=== PATIENT | female | born 1970 | race Caucasian/White ===

== ENCOUNTER 2020-11-22 14:40 | Outpatient (REF) | payer MEDICAID, SELFPAY ==
--- NOTE | ~2020-11-22 | MM_ITS ---
EXAMINATION: MM SCREENING DIGITAL BREAST TOMOSYNTHESIS, BILATERAL CLINICAL INFORMATION: Screening. Asymptomatic. Previous right breast lumpectomy for papillary hyperplasia The lifetime risk of breast cancer based on the Tyrer-Cuzick Model is 17.7%. COMPARISON: Mammography: March 08, 2019 and studies dating back to October 29, 2011 TECHNIQUE: Digital breast tomosynthesis is performed in both the craniocaudal and mediolateral oblique views along with computer-aided detection (CAD). Synthesized 2D images are generated from the tomosynthesis. FINDINGS: There are scattered areas of fibroglandular density (ACR BI-RADS breast composition Category b). There are no significant masses, abnormal calcifications, or other abnormalities. Stable right retroareolar circumscribed density again seen. MM/MM tomosynthesis screening BI IMPRESSION: There are no significant changes from prior study. ASSESSMENT: BI-RADS 1: Negative RECOMMENDATION: Routine annual mammography screening. This patient's information was entered into a reminder system with a target due date for their next mammogram.
== END 2020-11-22 14:41 | disposition home or self-care (01) ==
LOC: HO.MAMMO 14:40
PROVIDERS: PCP Internal Medicine; Visit Provider Internal Medicine
DX: Z12.31 Encounter for screening mammogram for malignant neoplasm of breast (principal)
CPT/HCPCS: 77063; 77067

== ENCOUNTER 2021-05-22 14:07 | Outpatient (REF) | payer MEDICAID, SELFPAY ==
--- NOTE | ~2021-05-22 | XR_ITS ---
EXAMINATION: BILATERAL KNEE. CLINICAL INFORMATION: Pain in bilateral knee. COMPARISON: None TECHNIQUE: 4 views each knee. FINDINGS: RIGHT KNEE: There is loss of medial and patellofemoral compartment joint space with periarticular spurring. No abnormal joint effusion, loose bodies or bony erosive changes. LEFT KNEE: There is mild loss of medial and patellofemoral compartment joint space with periarticular spurring. No joint effusion, loose bodies or bony erosive changes seen. XR/XR knee RT 4V IMPRESSION: Degenerative arthritic changes medial and patellofemoral compartment both knees without joint effusion. No acute fracture or dislocation seen.
--- NOTE | ~2021-05-22 | XR_ITS ---
EXAMINATION: BILATERAL KNEE. CLINICAL INFORMATION: Pain in bilateral knee. COMPARISON: None TECHNIQUE: 4 views each knee. FINDINGS: RIGHT KNEE: There is loss of medial and patellofemoral compartment joint space with periarticular spurring. No abnormal joint effusion, loose bodies or bony erosive changes. LEFT KNEE: There is mild loss of medial and patellofemoral compartment joint space with periarticular spurring. No joint effusion, loose bodies or bony erosive changes seen. XR/XR knee LT 4V IMPRESSION: Degenerative arthritic changes medial and patellofemoral compartment both knees without joint effusion. No acute fracture or dislocation seen.
== END 2021-05-22 14:08 | disposition home or self-care (01) ==
LOC: HO.XRAY 14:07
PROVIDERS: PCP Internal Medicine; Visit Provider Internal Medicine
DX: M25.561 Pain in right knee (principal); M25.562 Pain in left knee
CPT/HCPCS: 73564

== ENCOUNTER 2021-07-18 16:00 | Outpatient (RCR) | payer MEDICAID, SELFPAY | END 2021-07-24 15:36 | disposition home or self-care (01) | LOC: HO.PT 16:00 | PROVIDERS: PCP Internal Medicine; Visit Provider Internal Medicine | DX: M25.561 Pain in right knee (principal) | CPT/HCPCS: 97110; 97161; 97530 ==

== ENCOUNTER 2021-11-23 15:19 | Outpatient (REF) | payer MEDICAID, SELFPAY ==
--- NOTE | ~2021-11-23 | MM_ITS ---
EXAMINATION: MM SCREENING DIGITAL BREAST TOMOSYNTHESIS, BILATERAL CLINICAL INFORMATION: Screening. Asymptomatic. The lifetime risk of breast cancer based on the Tyrer-Cuzick Model is 13%. COMPARISON: Mammography: 11/22/2020 and prior studies dating back to 11/25/2013. TECHNIQUE: Digital breast tomosynthesis is performed in both the craniocaudal and mediolateral oblique views along with computer-aided detection (CAD). Synthesized 2D images are generated from the tomosynthesis. Additional right CC view is provided. FINDINGS: There are scattered areas of fibroglandular density (ACR BI-RADS breast composition Category b). Parenchymal pattern is similar to prior study. The left breast shows no interval mass or architectural abnormality or developing density. No abnormal calcifications on left. The bilateral axilla and skin contours are unremarkable. Right breast has smooth retroareolar nodule, slightly increased in size from prior remote studies. In addition, there are additional tightly grouped calcifications mid outer right breast on CC view but without definite correlate on MLO projection. Patient will be recalled for additional imaging of the 2 findings on the right. MM/MM tomosynthesis screening BI IMPRESSION: Right: -Smooth retroareolar nodule sightly increased. -Tightly grouped calcifications mid outer quadrant questionably increased. Left: -No mammographic evidence of malignancy. ASSESSMENT: BI-RADS 0: Incomplete - Need Additional Imaging Evaluation RECOMMENDATION: 1. Additional views of the right breast for calcifications (magnification CC; magnification ML). 2. Targeted ultrasound retroareolar right breast for nodule. 3. Radiology department staff will contact the patient for additional imaging. This patient's information was entered into a reminder system with a target due date for their next mammogram.
== END 2021-11-23 15:20 | disposition home or self-care (01) ==
LOC: HO.MAMMO 15:19
PROVIDERS: PCP Internal Medicine; Visit Provider Internal Medicine
DX: Z12.31 Encounter for screening mammogram for malignant neoplasm of breast (principal)
CPT/HCPCS: 77063; 77067

== ENCOUNTER 2021-12-10 14:02 | Outpatient (REF) | payer MEDICAID, SELFPAY ==
--- NOTE | ~2021-12-10 | MM_ITS ---
EXAMINATION: MM DIAGNOSTIC DIGITAL MAMMOGRAPHY, RIGHT US DIAGNOSTIC ULTRASOUND BREAST, RIGHT CLINICAL INFORMATION: Recall from screening for 2 findings, calcifications mid outer right breast and retroareolar nodule right breast. COMPARISON: Mammography: 11/23/2021, 11/22/2020, 03/08/2019, 02/06/2018, 01/20/2017, 01/10/2017, 12/22/2015, 12/08/2014. TECHNIQUE: Digital mammography right breast is performed in the following views: Magnification CC, magnification ML x2. Ultrasound right breast is targeted to the retroareolar region. Grayscale imaging and color Doppler are performed without and with harmonics. FINDINGS: There are scattered areas of fibroglandular density (ACR BI-RADS breast composition Category b). The magnification views demonstrate 2 separate but similar appearing grouped round calcifications which vary in size in the central outer right breast. Calcifications represent change from prior exams. Suggest stereotactic sampling of one of the grouped calcifications. If benign, then other group could be followed with diagnostic mammography in 6 months. Ultrasound right breast demonstrates a circumscribed solid nodule retroareolar 9:00 position measuring 10 x 8 x 5 mm. Nodule is increased in size since 2014. There is internal or peripheral color flow. No associated duct ectasia. This could represent an intraductal papilloma or slow-growing fibroadenoma. Ultrasound-guided core biopsy is suggested. Preliminary results are discussed with the patient at time of visit, using an criminology professor. MM/MM added views RT IMPRESSION: -2 similar appearing grouped calcifications central outer right breast representing change from prior exams. -1 cm retroareolar nodule increased in size since 2014, possibly intraductal papilloma or slow-growing fibroadenoma. ASSESSMENT: BI-RADS 4: Suspicious (subcategory 4A: Low suspicion for malignancy) RECOMMENDATION: 1. Stereotactic sampling of at least one of the right breast grouped calcifications. 2. Ultrasound-guided core sampling retroareolar nodule right breast. This patient's information was entered into a reminder system with a target due date for their next mammogram.
== END 2021-12-10 14:03 | disposition home or self-care (01) ==
LOC: HO.MAMMO 14:02
PROVIDERS: Visit Provider Internal Medicine
DX: R92.1 Mammographic calcification found on diagnostic imaging of breast (principal)
CPT/HCPCS: 76642; 77065

== ENCOUNTER 2021-12-19 11:47 | Outpatient (REF) | payer MEDICAID, SELFPAY ==
--- NOTE | ~2021-12-19 | MM_ITS ---
EXAMINATION: ULTRASOUND GUIDED CORE BIOPSY BREAST, RIGHT STEREOTACTIC TOMOSYNTHESIS-GUIDED VACUUM-ASSISTED BREAST BIOPSY, RIGHT SPECIMEN RADIOGRAPH, RIGHT POST PROCEDURE DIGITAL MAMMOGRAM, RIGHT CLINICAL INFORMATION: Retroareolar nodule right breast increased in size since 2014 with associated color flow. Also 2 similar appearing grouped calcifications right breast mid depth. COMPARISON: Mammography 11/23/2021, 12/10/2021, targeted right breast ultrasound 12/10/2021. FINDINGS: Proper informed consent is obtained from the patient after discussion of the procedure, potential risks and complications, and alternatives. Patient was given an opportunity for questions. The patient appeared to understand. The patient consented to the procedure and signed the consent form. Hospital provided final rail cutter assisted for the consents and and throughout both procedures. ULTRASOUND GUIDED CORE BIOPSY BREAST, RIGHT GUIDANCE: Ultrasound-guided; aseptic technique. LESION: Circumscribed solid nodule retroareolar 9:00 right breast 10 x 8 x 5 mm, increased in size since 2014. Differential considerations include a papilloma, fibroadenoma, PASH, or other. APPROACH: Lateral medial. ANESTHESIA: 10 mL carbonated 1% lidocaine. DERMATOTOMY: Single skin lauren dermatotomy performed. NEEDLE: 14-gauge Achieve core biopsy device with 13.5-gauge co-axial guide needle. CORES: 6. CLIP: HydroMARK; shape: butterfly. The patient tolerated the procedure well. No immediate complications. STEREOTACTIC TOMOSYNTHESIS-GUIDED VACUUM-ASSISTED BREAST BIOPSY, RIGHT BIOPSY TABLE: Digital Orchid Affirm Prone Biopsy System. LESION: Tight group of calcifications mid upper outer quadrant. LOCAL ANESTHESIA: 10 mL carbonated 1% lidocaine; 10 mL 2% lidocaine with epinephrine. DERMATOTOMY: Single skin lauren dermatotomy performed. NEEDLE: Terascore Eviva 9-gauge vacuum assisted core biopsy device. APPROACH: Craniocaudal. TARGETING: Combination of digital breast tomosynthesis and stereotactic digital mammography used for targeting. CORES: 5. CLIP: Suros SecurMark Cylinder-shaped marker. SPECIMEN RADIOGRAPH: Specimen radiograph is taken in separate room using digital mammography. The index calcifications are in the excised cores. There are at least 7 calcifications in the cores. POST PROCEDURE UNILATERAL DIGITAL MAMMOGRAM: The post biopsy mammogram is performed in separate room using separate digital mammography equipment from the biopsy procedure. CC and ML views are obtained. There are scattered areas of fibroglandular density (breast composition category: b). The clip markers are in position. The calcifications are markedly decreased at the biopsy site. There are other calcifications in the lower central right breast, not sampled as recently described. No gross hematoma. The patient tolerated the procedure well. No immediate complications. Home instructions reviewed with the patient. Final pathology results are pending. MM/MM stereotactic biopsy RT IMPRESSION: 1. Status post ultrasound-guided core biopsy nodule 9:00 retroareolar position. HydroMARK butterfly shaped clip marker placed. 2. Status post stereotactic core biopsy right breast mid upper outer quadrant breast with Suros cylinder shaped clip placed. There is a second group of similar appearing calcifications more inferior not sampled. 3. Specimen radiograph taken and post procedure unilateral right mammogram. There is satisfactory positioning of the biopsy clips. 4. Final pathology results pending. An addendum report will be issued.
--- NOTE | ~2021-12-19 | MM_ITS ---
EXAMINATION: ULTRASOUND GUIDED CORE BIOPSY BREAST, RIGHT STEREOTACTIC TOMOSYNTHESIS-GUIDED VACUUM-ASSISTED BREAST BIOPSY, RIGHT SPECIMEN RADIOGRAPH, RIGHT POST PROCEDURE DIGITAL MAMMOGRAM, RIGHT CLINICAL INFORMATION: Retroareolar nodule right breast increased in size since 2014 with associated color flow. Also 2 similar appearing grouped calcifications right breast mid depth. COMPARISON: Mammography 11/23/2021, 12/10/2021, targeted right breast ultrasound 12/10/2021. FINDINGS: Proper informed consent is obtained from the patient after discussion of the procedure, potential risks and complications, and alternatives. Patient was given an opportunity for questions. The patient appeared to understand. The patient consented to the procedure and signed the consent form. Hospital provided interpreter for the deaf assisted for the consents and and throughout both procedures. ULTRASOUND GUIDED CORE BIOPSY BREAST, RIGHT GUIDANCE: Ultrasound-guided; aseptic technique. LESION: Circumscribed solid nodule retroareolar 9:00 right breast 10 x 8 x 5 mm, increased in size since 2014. Differential considerations include a papilloma, fibroadenoma, PASH, or other. APPROACH: Lateral medial. ANESTHESIA: 10 mL carbonated 1% lidocaine. DERMATOTOMY: Single skin lauren dermatotomy performed. NEEDLE: 14-gauge Achieve core biopsy device with 13.5-gauge co-axial guide needle. CORES: 6. CLIP: HydroMARK; shape: butterfly. The patient tolerated the procedure well. No immediate complications. STEREOTACTIC TOMOSYNTHESIS-GUIDED VACUUM-ASSISTED BREAST BIOPSY, RIGHT BIOPSY TABLE: [employer] Affirm Prone Biopsy System. LESION: Tight group of calcifications mid upper outer quadrant. LOCAL ANESTHESIA: 10 mL carbonated 1% lidocaine; 10 mL 2% lidocaine with epinephrine. DERMATOTOMY: Single skin lauren dermatotomy performed. NEEDLE: [employer] Eviva 9-gauge vacuum assisted core biopsy device. APPROACH: Craniocaudal. TARGETING: Combination of digital breast tomosynthesis and stereotactic digital mammography used for targeting. CORES: 5. CLIP: Suros SecurMark Cylinder-shaped marker. SPECIMEN RADIOGRAPH: Specimen radiograph is taken in separate room using digital mammography. The index calcifications are in the excised cores. There are at least 7 calcifications in the cores. POST PROCEDURE UNILATERAL DIGITAL MAMMOGRAM: The post biopsy mammogram is performed in separate room using separate digital mammography equipment from the biopsy procedure. CC and ML views are obtained. There are scattered areas of fibroglandular density (breast composition category: b). The clip markers are in position. The calcifications are markedly decreased at the biopsy site. There are other calcifications in the lower central right breast, not sampled as recently described. No gross hematoma. The patient tolerated the procedure well. No immediate complications. Home instructions reviewed with the patient. Final pathology results are pending. MM/MM diagnostic mammo unilat RT IMPRESSION: 1. Status post ultrasound-guided core biopsy nodule 9:00 retroareolar position. HydroMARK butterfly shaped clip marker placed. 2. Status post stereotactic core biopsy right breast mid upper outer quadrant breast with Suros cylinder shaped clip placed. There is a second group of similar appearing calcifications more inferior not sampled. 3. Specimen radiograph taken and post procedure unilateral right mammogram. There is satisfactory positioning of the biopsy clips. 4. Final pathology results pending. An addendum report will be issued.
[2021-12-19] MEDS: Lidocaine HCl 1 % 20 ML VIAL 18 ML SUBCUT (13:37)
[2021-12-19] MEDS: Sodium Bicarbonate 8.4% 50 MEQ/50 ML VIAL SUBCUT (13:38)
[2021-12-19] MEDS: Lidocaine HCl 2%/Epi 1:100,000 20 ML VIAL 10 ML INFILTRATI (13:58)
== END 2021-12-19 11:48 | disposition home or self-care (01) ==
LOC: HO.MAMMO 11:47
PROVIDERS: Visit Provider Surgery
DX: R92.1 Mammographic calcification found on diagnostic imaging of breast (principal)
CPT/HCPCS: 19081; 19083; 77062; 77065; 88305; A4648

== ENCOUNTER → 2021-12-26 14:57 | Outpatient (BNVA) | payer MEDICAID, SELFPAY | PROVIDERS: PCP Internal Medicine; Referring Provider Internal Medicine; Visit Provider Surgery | DX: R92.1 Mammographic calcification found on diagnostic imaging of breast (principal) | CPT/HCPCS: 99202 ==

== ENCOUNTER 2022-07-02 13:11 | Outpatient (REF) | payer MEDICAID, SELFPAY ==
--- NOTE | ~2022-07-02 | MM_ITS ---
EXAMINATION: MM DIAGNOSTIC DIGITAL BREAST TOMOSYNTHESIS, RIGHT CLINICAL INFORMATION: Benign right stereotactic biopsy 12/19/2021 (benign breast tissue with fibrocystic changes and microcalcifications). Reassess other smaller grouped next sample. History benign right ultrasound-guided biopsy 12/19/2021, fibroadenoma. The lifetime risk of breast cancer based on the Tyrer-Cuzick Model is 13%. COMPARISON: Mammography: 12/19/2021, 12/10/2021, 11/23/2021 (BI-RADS 0), 11/22/2020 TECHNIQUE: Digital breast tomosynthesis is performed in both the craniocaudal and mediolateral oblique views along with computer-aided detection (CAD). Synthesized 2D images are generated from the tomosynthesis. Additional magnification right CC and magnification right ML views are obtained. FINDINGS: There are scattered areas of fibroglandular density (ACR BI-RADS breast composition Category b). There is biopsy clip marker mid upper outer right breast corresponding to the prior stereotactic biopsy. A smaller clip marker adjacent to stable circumscribed nodule retroareolar breast corresponds to the ultrasound-guided biopsy. There is no interval mass or architectural abnormality. The remaining calcifications for follow-up central lower breast appear decreased. There are no increasing calcifications or interval suspicious changes. Right breast calcifications will be reassessed again at time of annual bilateral mammography, due in 6 months. Results are provided to the patient at time of visit by the technologist. MM/MM tomosynthesis diagnostic RT IMPRESSION: -No mammographic evidence of malignancy. -The calcifications for follow-up central lower breast appears decreased. No suspicious changes. ASSESSMENT: BI-RADS 3: Probably Benign RECOMMENDATION: Diagnostic mammography at time of annual bilateral exam, due in 6 months. This patient's information was entered into a reminder system with a target due date for their next mammogram.
== END 2022-07-02 13:12 | disposition home or self-care (01) ==
LOC: HO.MAMMO 13:11
PROVIDERS: Visit Provider Internal Medicine
DX: R92.1 Mammographic calcification found on diagnostic imaging of breast (principal)
CPT/HCPCS: 77061; 77065

== ENCOUNTER 2023-01-01 14:12 | Outpatient (REF) | payer MEDICAID, SELFPAY ==
--- NOTE | ~2023-01-01 | MM_ITS ---
EXAMINATION: MM DIAGNOSTIC DIGITAL BREAST TOMOSYNTHESIS, BILATERAL CLINICAL INFORMATION: Follow-up right breast calcifications. The lifetime risk of breast cancer based on the Tyrer-Cuzick Model is 12.8%. COMPARISON: Mammography: 12/19/2021 and studies dating back to 12/22/2015. TECHNIQUE: Digital breast tomosynthesis is performed in both the craniocaudal and mediolateral oblique views along with computer-aided detection (CAD). Synthesized 2D images are generated from the tomosynthesis. Additional spot magnification views of the right breast in craniocaudal and 90 degree mediolateral views performed. FINDINGS: There are scattered areas of fibroglandular density (ACR BI-RADS breast composition Category b). There is a stable parenchymal pattern of the left breast with no new abnormal dominant mass or suspicious grouping of microcalcifications. Patient is status post biopsy with removal of grouping of calcifications about the upper outer aspect of the right breast as well as biopsy of a fibroadenoma in the anterior right breast. There is a remaining grouping of calcifications within the upper outer aspect which is stable in appearance for one year and for which one-year diagnostic mammogram is recommended. Results are provided to the patient at time of visit by the technologist. MM/MM tomosynthesis diagnostic BI IMPRESSION: There are no significant changes from prior study. ASSESSMENT: BI-RADS 3: Probably Benign. RECOMMENDATION: Diagnostic mammography at time of next annual exam, due in 12 months. This patient's information was entered into a reminder system with a target due date for their next mammogram.
== END 2023-01-01 14:13 | disposition home or self-care (01) ==
LOC: HO.MAMMO 14:12
PROVIDERS: Visit Provider Internal Medicine
DX: R92.1 Mammographic calcification found on diagnostic imaging of breast (principal)
CPT/HCPCS: 77062; 77066

== ENCOUNTER 2023-03-24 16:40 | Emergency (ER) | payer MEDICAID, SELFPAY ==
[2023-03-24 16:58] VITALS: BP 143/78; PULSE 72; RESP 18; TEMP 36.6; O2SAT 96; BMI 33.3
--- NOTE | 2023-03-24 17:07 | ED_ITS ---
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 Patient states that she was bit by a dog on her left thumb earlier today. Patient states that she was seen at a clinic where they prescribed her antibiotics but they sent her here for tetanus and rabies. Patient denies any dizziness, lightheadedness, abdominal pain, nausea, vomiting, fever, chills, blurry vision, double vision, loss of vision, chest pain, difficulty breathing, shortness of breath, back pain, night sweats, pain with urination, increased urinary frequency, increased urinary urgency, blood in her urine or stool, syncope or a near syncopal episode, bowel incontinence, bladder incontinence, bowel retention, bladder retention, or any other complaints at this time. Onset (ago): hour(s) Location: left (thumb) Radiation: non-radiation Severity: mild Severity scale (1-10): 2 Quality: dull Pain Consistency: constant Relieving factors: none Exacerbating factors: none Associated symptoms: denies other symptoms Treatments prior to arrival: none Related Data Home Medications Medication Instructions Recorded Confirmed atorvastatin 40 mg tablet 40 mg PO BEDTIME 12/26/21 12/26/21 losartan 25 mg tablet 25 mg PO DAILY 12/26/21 12/26/21 Allergies Allergy/AdvReac Type Severity Reaction Status Date / Time No Known Allergies Allergy Verified 12/26/21 15:28 Review of Systems Constitutional: Constitutional: Reports no additional constitutional complaints, Denies chills, Denies fever(s) and Denies night sweats Eyes: Eyes: Reports no additional eye complaints, Denies blurry vision, Denies change in vision, Denies diplopia, Denies eye discharge, Denies loss of vision and Denies eye pain ENT: Denies dizziness Cardiovascular: Cardiovascular: Reports no additional cardiovascular complaints, Denies chest pain, Denies lightheadedness, Denies Loss of Consciousness and Denies dyspnea Respiratory: Respiratory: Reports no additional respiratory complaints and Denies dyspnea Gastrointestinal: Gastrointestinal: Reports no additional gastrointestinal complaints, Denies abdominal pain, Denies melena, Denies hematochezia, Denies change in bowel habits and Denies change in stool character Genitourinary: Genitourinary: Denies hematuria, Denies urinary frequency, Denies dysuria, Denies urinary incontinence, Denies urinary hesitancy and Denies urinary urgency Musculoskeletal: Musculoskeletal: Reports no additional musculoskeletal complaints, Denies numbness and Denies tingling Comments: dog bite to the left thumb Neurologic: Denies dizziness, Denies loss of vision, Denies numbness and Denies tingling Psychiatric: Psychiatric: Reports no additional psychiatric complaints Endocrine: Endocrine: Reports no additional endocrine complaints Hematologic/Lymphatic: Hematologic/Lymphatic: Reports no additional hematologic/lymphatic complaints Allergic/Immunologic: Allergic/Immunologic: Reports no additional allergic/immunologic complaints PMFSH Past Medical History Attestation statement: The following information was validated with the patient. Source: old records reviewed and nursing notes reviewed Medical History Breast calcification, right Hypertension Morbid obesity Social History Social History Advance Directives: No Advance Directives Information Provided: No Physical Exam ED Vital Signs: Vital Signs - 24 hr 03/24/23 16:58 Temperature 98 F Pulse Rate 72 Respiratory Rate 18 Blood Pressure 143/78 H Pulse Oximetry 96 Oxygen Delivery Method Room Air BMI result Body Mass Index 33.3 Const General: cooperative, no acute distress, alert and awake Nutritional Appearance: well nourished Orientation/consciousness: patient oriented x3 Limitations: no limitations [facility] Head: Yes normal to inspection and Yes atraumatic Ears: hearing grossly normal bilaterally and external ears normal General nose exam: Normal external nose present, no nasal discharge noted and no epistaxis Face and sinus: Yes normal facial exam, No abrasion and No laceration Mouth: Normal oral and palatal mucosa present, no drooling and no muffled voice Eyes General: appearance normal, both eyes and all related structures Periorbital: periorbital findings normal Eyelids: Yes eyelids normal Conjunctivae: conjunctivae normal Pupils: Equal, round and reactive pupils present EOM: EOMs intact bilaterally Neck Neck: Yes normal visual inspection, Yes full ROM and Yes no lymphadenopathy Chest Chest palpation & inspection: normal inspection of the chest Resp Effort & Inspection: normal respiratory effort and able to speak in complete sentences GI Inspection: Yes normal to inspection Neuro General: patient oriented x3 and moves all extremities Cranial nerves: Yes Equal, round and reactive pupils present Cognition (Neuro): normal cognition Motor exam (neuro): 5/5 motor strength present throughout Sensory Exam: Normal double simultaneous stimulation for sensation Coordination: [id number] test normal Extrem Other: small abrasion to the left dorsal thumb, no gaping, no active bleeding General: Yes full ROM and Yes capillary refill normal Psych Appearance: grossly normal Mental Status: mental status grossly normal Affect: normal affect Attitude: cooperative Thought process: Normal thought process present Thought content: Normal thought content present Insight: Good insight present (Psych) Medical Decision Making Medical Decision Making MDM Narrative: Patient is a 52 year old assigned female at with a history of HTN presenting to the emergency department today with a left thumb dog bite. Patient's physical exam showed a small abrasion to the dorsal left thumb. I explained my physical exam findings to the patient. I answered all questions asked by the patient. Patient received boostrix and rabies. I stressed the importance of the patient taking her medication as prescribed. I stressed the importance of the patient following up with her primary care provider. I stressed the importance of the patient returning to the emergency department immediately if her symptoms were to worsen or if she were to develop any dizziness, shortness of breath, difficulty breathing, chest pain, blurry vision, loss of vision, nausea, vomiting, abdominal pain, fever, chills, back pain, or any other complaints. Patient verbalized agreement and understanding with this treatment plan and discharge. Differential Diagnosis Differential Diagnoses: The differential diagnosis associated with the presentation includes Dog bite Dog abrasion Puncture wound Abrasion Prescription Management I considered prescription management with: Antibiotic (patient was already prescribed antibiotic by the clinic she was seen in today.) Chronic Conditions Patient?s care impacted by: Hypertension Discharge Plan Discharge Clinical Impression: Dog bite Patient Disposition: Home, Self-Care Instructions: Animal Bite (ED), Rabies (ED) Additional Instructions: Follow up with your primary care provider. Return to the emergency department immediately if your symptoms worsen or if you develop any dizziness, shortness of breath, difficulty breathing, chest pain, blurry vision, loss of vision, nausea, vomiting, abdominal pain, fever, chills, back pain, or any other complaints. Call [facility] tomorrow at [phone] to schedule an appointment to receive the remainder of your required Rabies Vaccines. You will need a total of 3 more injections. Bring the Rabies Vaccine Order Set sheet and your Rabies Vaccination Record with you to these appointments. If the day you are supposed to come back for the rabies vaccine falls on a weekend or a holiday, proceed to the Emergency Department to receive the required vaccination. Follow up with your primary care provider after completion of the vaccine to have a titer drawn to ensure the vaccines effectiveness. Cara un seguimiento con charles proveedor de atenci?n primaria. Regrese al departamento de emergencias de inmediato si khushbu s?ntomas empeoran o si presenta mareos, falta de aire, dificultad para respirar, dolor de pecho, visi?n borrosa, p?rdida de la visi?n, n?useas, v?mitos, dolor abdominal, fiebre, escalofr?os, dolor de espalda o cualquier otras quejas. Llame a [facility] ma?deanna al [phone] para programar abebe ruby para recibir el marcella de khushbu vacunas contra la ron requeridas. Necesitar? un total de 3 inyecciones m?s. Lleve a estas citas la hoja Conjunto de pedidos de vacunas contra la ron y charles Registro de vacunas contra la ron . Si el d?a en que se supone que debe regresar para la vacuna contra la ron en un fin de semana o un feriado, dir?jhonny al Departamento de Emergencias para recibir la vacuna requerida. Cara un seguimiento con charles proveedor de atenci?n primaria despu?s de completar la vacuna para obtener un t?tulo para garantizar la efectividad de las vacunas. Prescriptions: No Action losartan 25 mg tablet 25 mg PO DAILY atorvastatin 40 mg tablet 40 mg PO BEDTIME Referrals: [facility] [Primary Care Provider] - Stand Alone Forms: Work/School Release Print Language: Chinese
--- NOTE | 2023-03-24 17:51 | PC.NURSE ---
ORDERS FOR FUTRUE RABIES DOSES, FAXED TO [facility]- SEE FAX CONFIRMATIONS IN BINDER
[2023-03-24] MEDS: Rabies Immune Globulin/PF 900 UNIT/3 ML VIAL 1651.08 UNIT IM (18:01)
[2023-03-24] MEDS: Rabies Vaccine, Human Diploid (Imovax) 1 ML VIAL IM (18:01)
[2023-03-24] MEDS: Diphth,Pertus(ACell),Tet Adult 0.5 ML SYRINGE IM (18:02)
--- NOTE | 2023-03-24 18:16 | PC.NURSE ---
pt medicated per MAR- discharge instructios provided with assistance of video producer- all questions answered
== END 2023-03-24 18:17 | disposition home or self-care (01) ==
PROVIDERS: Emergency Provider Student in an Organized Health Care Education/Training Program
DX: S61.052A Open bite of left thumb without damage to nail, initial encounter (principal); S60.312A Abrasion of left thumb, initial encounter; W54.0XXA Bitten by dog, initial encounter; Y93.9 Activity, unspecified; Y92.9 Unspecified place or not applicable; Y99.9 Unspecified external cause status; Z79.899 Other long term (current) drug therapy; Z23 Encounter for immunization
CPT/HCPCS: 90375; 90471; 90472; 90675; 90715; 96372; 99282; 99284

== ENCOUNTER 2023-03-27 12:14 | Outpatient (REF) | payer MEDICAID, SELFPAY | END 2023-03-27 12:15 | disposition home or self-care (01) | LOC: HO.MDS 12:14 | PROVIDERS: Visit Provider Physician Assistant Medical | DX: S61.052D Open bite of left thumb without damage to nail, subsequent encounter (principal); W54.0XXD Bitten by dog, subsequent encounter | CPT/HCPCS: 90471; 90675 ==

== ENCOUNTER 2023-03-31 12:14 | Outpatient (REF) | payer MEDICAID, SELFPAY | END 2023-03-31 12:15 | disposition home or self-care (01) | LOC: HO.MDS 12:14 | PROVIDERS: Visit Provider Physician Assistant Medical | DX: Z20.3 Contact with and (suspected) exposure to rabies (principal); S61.052D Open bite of left thumb without damage to nail, subsequent encounter; W54.0XXD Bitten by dog, subsequent encounter | CPT/HCPCS: 90471; 90675 ==

== ENCOUNTER 2023-04-07 12:30 | Outpatient (REF) | payer MEDICAID, SELFPAY | END 2023-04-07 12:31 | disposition home or self-care (01) | LOC: HO.MDS 12:30 | PROVIDERS: Visit Provider Physician Assistant Medical | DX: S61.052D Open bite of left thumb without damage to nail, subsequent encounter (principal); W54.0XXD Bitten by dog, subsequent encounter | CPT/HCPCS: 90471; 90675 ==

== ENCOUNTER 2023-08-28 | Outpatient (REF) | payer MEDICAID, SELFPAY ==
[2023-09-05 03:48] LABS: HPV mRNA E6/E7 rflx Not Detected (Not Detected)
== END 2023-08-28 00:01 | disposition home or self-care (01) ==
LOC: HO.HHCLNP
PROVIDERS: Visit Provider Advanced Practice Midwife
DX: Z12.4 Encounter for screening for malignant neoplasm of cervix (principal); Z11.51 Encounter for screening for human papillomavirus (HPV)
CPT/HCPCS: 87624; 88142

== ENCOUNTER 2023-10-31 10:02 | Outpatient (REF) | payer MEDICAID, SELFPAY ==
[2023-10-31 11:27] LABS: Anion Gap 13 (12-20); Blood Urea Nitrogen 19 mg/dL (9-16); Calcium 9.7 mg/dL (8.4-10.2); Carbon Dioxide 29 mmol/L (22-29); Chloride 104 mmol/L (96-108); Estimated Glomerular Filt Rate > 60; Glucose Random 116 mg/dL (60-115); Potassium 4.2 mmol/L (3.3-5.1); Sodium 142 mmol/L (135-145)
[2023-10-31 11:35] LABS: Estimated Average Glucose 117 mg/dL; Hemoglobin A1c % 5.7 % (<6.0)
== END 2023-10-31 10:03 | disposition home or self-care (01) ==
LOC: HO.HHCL 10:02
PROVIDERS: Visit Provider Nurse Practitioner Family
DX: R73.9 Hyperglycemia, unspecified (principal); I10 Essential (primary) hypertension
CPT/HCPCS: 36415; 80048; 83036

== ENCOUNTER 2024-01-13 14:21 | Outpatient (REF) | payer MEDICAID, SELFPAY ==
--- NOTE | ~2024-01-13 | MM_ITS ---
EXAMINATION: MM DIAGNOSTIC DIGITAL BREAST TOMOSYNTHESIS, BILATERAL CLINICAL INFORMATION: Benign right stereotactic biopsy 12/19/2021 (benign breast tissue with fibrocystic changes and microcalcifications). History benign right ultrasound-guided biopsy 12/19/2021, fibroadenoma. One-year follow-up to reassess other smaller group. COMPARISON: Mammography: 01/01/2023, 12/19/2021, 12/10/2021, 11/23/2021 (BI-RADS 0), 11/22/2020. TECHNIQUE: Digital breast tomosynthesis is performed in both the craniocaudal and mediolateral oblique views along with computer-aided detection (CAD). Synthesized 2D images are generated from the tomosynthesis. In addition, a full-field right 3-D mediolateral view was obtained, as well as 2-D spot magnification right CC and ML views. FINDINGS: There are scattered areas of fibroglandular density (ACR BI-RADS breast composition Category b). There is a biopsy clip in the right breast upper outer quadrant from prior benign stereotactic biopsy. There is a butterfly biopsy clip in the retroareolar region from prior benign fibroadenoma biopsy. The calcifications in the right breast upper quadrant slightly lateral to the medial line, middle one third are stable from 1 year prior, and benign. These do not meet biopsy threshold, as approximately only 3 punctate calcifications are present. These have not changed in the interim. These have been stable since 11/23/2021, meeting a two-year stability threshold and hence are benign. Otherwise, there are no suspicious masses, suspicious grouped calcifications, or areas of architectural distortion in either breast. The parenchymal pattern is stable from prior exams. There are no skin or axillary abnormalities. MM/MM tomosynthesis diagnostic BI IMPRESSION: There are no findings suspicious for malignancy in either breast. There are benign findings in the right breast, including calcifications which have been stable over 2 years, which are benign and no further follow-up is recommended. Recommend the patient resume routine annual screening to include both breasts. ASSESSMENT: BI-RADS BI-RADS 2 - Benign Findings RECOMMENDATION: 1 year F/U Results were provided to the patient at time of visit by the technologist. This patient's information was entered into a reminder system with a target due date for their next mammogram.
== END 2024-01-13 14:22 | disposition home or self-care (01) ==
LOC: HO.MAMMO 14:21
PROVIDERS: PCP Nurse Practitioner Family; Visit Provider Nurse Practitioner Family
DX: R92.1 Mammographic calcification found on diagnostic imaging of breast (principal)
CPT/HCPCS: 77062; 77066

== ENCOUNTER → 2024-01-13 15:00 | Outpatient (BNV) | payer MEDICAID, SELFPAY | PROVIDERS: PCP Nurse Practitioner Family; Visit Provider Radiology Diagnostic Radiology | DX: R92.1 Mammographic calcification found on diagnostic imaging of breast (principal) | CPT/HCPCS: 77062; 77066 ==

== ENCOUNTER 2024-06-07 08:56 | Outpatient (REF) | payer MEDICAID, SELFPAY ==
[2024-06-07 11:44] LABS: Estimated Average Glucose 131 mg/dL; Hemoglobin A1c % 6.2 % (<6.0)
[2024-06-07 12:01] LABS: Alanine Aminotransferase 25 U/L (0-31); Alkaline Phosphatase 59 U/L (39-117); Anion Gap 10 (12-20); Aspartate Amino Transferase 19 U/L (5-31); Bilirubin Total 0.4 mg/dL (0.0-1.0); Blood Urea Nitrogen 15 mg/dL (9-16); Calcium 9.8 mg/dL (8.4-10.2); Carbon Dioxide 29 mmol/L (22-29); Chloride 105 mmol/L (96-108); Estimated Glomerular Filt Rate > 60; Glucose Random 114 mg/dL (60-115); Potassium 4.2 mmol/L (3.3-5.1); Sodium 140 mmol/L (135-145); Total Protein 7.7 g/dL (6.5-8.0)
[2024-06-07 12:18] LABS: TSH reflex Free T4 2.75 uIU/mL (0.32-4.0)
== END 2024-06-07 08:57 | disposition home or self-care (01) ==
LOC: HO.HHCL 08:56
PROVIDERS: Visit Provider Nurse Practitioner Family
DX: I10 Essential (primary) hypertension (principal)
CPT/HCPCS: 36415; 80053; 83036; 84443

== ENCOUNTER 2024-09-01 14:16 | Outpatient (REF) | payer OTHER, SELFPAY ==
--- NOTE | ~2024-09-01 | US_ITS ---
EXAMINATION: US PELVIS CLINICAL INFORMATION: Postmenopausal bleeding COMPARISON: None available. TECHNIQUE: Ultrasound of the pelvis is performed using both transabdominal and transvaginal transducers along with Doppler. Transvaginal imaging is performed due to inadequate visualization transabdominally. FINDINGS: Uterus: The uterus is anteverted and measures 7.2 x 4.0 x 3.7 cm for a volume of 56 cc The double wall endometrial thickness is 6 mm. Nabothian cyst is present. 2 small fibroids are seen one anteriorly measuring 1.7 x 1.7 x 1.9 cm and another posteriorly measuring 0.9 x 0.6 x 1.1 cm. Adnexa: The right ovary was not seen. Left ovary appeared normal measuring 1.9 x 1.0 x 2.3 cm for a volume of 2.3 cc. There is no free fluid in the pelvis. US/US pelvic and transvaginal IMPRESSION: 1. Endometrium is 6 mm which is abnormally thickened in a postmenopausal patient. Endometrial biopsy should be considered. 2. Small uterine fibroids. Electronically signed by: Pal Navarrete MD 09/03/2024 12:04 AM NEREYDA
[2024-09-02 10:58] LABS: HPV 16,18/45 See PAP report
== END 2024-09-01 14:17 | disposition home or self-care (01) ==
LOC: HO.US 14:16
PROVIDERS: PCP Nurse Practitioner Family; Visit Provider Advanced Practice Midwife
DX: Z12.4 Encounter for screening for malignant neoplasm of cervix (principal); Z11.51 Encounter for screening for human papillomavirus (HPV); N95.0 Postmenopausal bleeding
CPT/HCPCS: 76830; 76856; 87491; 87591; 87624; 87661; 88175

== ENCOUNTER 2025-01-14 14:28 | Outpatient (REF) | payer OTHER, SELFPAY | END 2025-01-14 14:29 | disposition home or self-care (01) | LOC: HO.MAMMO 14:28 | PROVIDERS: PCP Nurse Practitioner Family; Visit Provider Nurse Practitioner Family | DX: Z12.31 Encounter for screening mammogram for malignant neoplasm of breast (principal) | CPT/HCPCS: 77063; 77067 ==

== ENCOUNTER → 2025-01-14 15:00 | Outpatient (BNV) | payer OTHER, SELFPAY | PROVIDERS: PCP Nurse Practitioner Family; Visit Provider Internal Medicine | DX: Z12.31 Encounter for screening mammogram for malignant neoplasm of breast (principal) | CPT/HCPCS: 77063; 77067 ==

== ENCOUNTER → 2025-01-18 14:21 | Outpatient (BNVA) | payer OTHER, SELFPAY | PROVIDERS: PCP Nurse Practitioner Family; Visit Provider Nurse Practitioner Family ==